=== PATIENT | male | born 1975 | race Caucasian/White ===

== ENCOUNTER 2016-10-27 09:31 | Emergency (ER) | payer OTHER ==
--- NOTE | ~2016-10-27 | CR181 ---
[facility]. [facility] A Service of [facility] & [facility] RADIOLOGY TEXT RESULTS PATIENT: GEOVANNI ABREU LOCATION: SED : 79 UNIT #: [id number] AGE: [address]: Riley Lester MD SEX: M ORDER DR: [id number] [place] [id number] E MR#: [id number] Acc #: [id number] NAME: GEOVANNI ABREU : 1975 SEX: M STUDY DATE/TIME: 10/27/2016 9:39 UNIT: SED ROOM: STUDY DESCRIPTION: CR Lumbar Spine 2 or 3 Views Attending Physician: Riley Lester M.D. Ordering Physician: Riley Lester M.D. Primary Care Physician: Caleb Armijo M.D. MEDICAL IMAGING REPORT This report is preliminary unless electronic signature is present. EXAM Lumbar spine radiographs. DATE OF EXAM 10/27/2016 INDICATIONS Fall. Low back pain. FINDINGS 3 views of the lumbar spine without comparison. There is no acute fracture or subluxation. Vertebral body height and alignment is within normal limits. There is some mild degenerative changes within the lumbar spine. Sacroiliac joints are normal. IMPRESSION No acute findings. Mild degenerative changes of the lumbar spine. Dictated by... Dale Read M.D. THIS IS AN ELECTRONICALLY VERIFIED REPORT Dale Read M.D. at 10/28/2016 10:42 AM GISELA/jean carlos TD: 10/28/2016 00:53 JOB #: [id number] MEDICAL IMAGING REPORT Page 1 of 1
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
[~2016-10-27 09:31] MED LIST: BENTYL20 MG PO; IBUPROFEN800 MG PO; LORTAB 7.5-3251 EACH; NEURONTIN800 MG PO; REGLAN; ZANTAC300 MG PO
== END 2016-10-27 10:25 | disposition home or self-care (01) ==
LOC: SED 09:31
DX: S39.012A Strain of muscle, fascia and tendon of lower back, initial encounter (principal); F17.200 Nicotine dependence, unspecified, uncomplicated; M54.9 Dorsalgia, unspecified; G89.29 Other chronic pain; W01.0XXA Fall on same level from slipping, tripping and stumbling without subsequent striking against object, initial encounter; Y92.9 Unspecified place or not applicable
CPT/HCPCS: 71101; 72072; 72100; 96372; 99284; J1885

== ENCOUNTER 2016-10-28 22:08 | Emergency (ER) | payer OTHER | END 2016-10-28 22:22 | disposition home or self-care (01) | LOC: SED 22:08 | DX: S33.5XXA Sprain of ligaments of lumbar spine, initial encounter (principal); S20.211A Contusion of right front wall of thorax, initial encounter; G89.29 Other chronic pain; F17.200 Nicotine dependence, unspecified, uncomplicated; V49.10XA Passenger injured in collision with unspecified motor vehicles in nontraffic accident, initial encounter; Z98.890 Other specified postprocedural states; Z88.0 Allergy status to penicillin; Z88.8 Allergy status to other drugs, medicaments and biological substances | CPT/HCPCS: 96372; 99283; J1200; J1885 ==

== ENCOUNTER 2017-03-13 23:25 | Emergency (ER) | payer OTHER ==
[~2017-03-13] VITALS: Ht 188 cm; Wt 79.4 kg
== END 2017-03-14 02:02 | disposition home or self-care (01) ==
LOC: SED 23:25
DX: T40.1X1A Poisoning by heroin, accidental (unintentional), initial encounter (principal); I10 Essential (primary) hypertension; J44.9 Chronic obstructive pulmonary disease, unspecified; F17.200 Nicotine dependence, unspecified, uncomplicated; K21.9 Gastro-esophageal reflux disease without esophagitis; Z88.0 Allergy status to penicillin; Z88.5 Allergy status to narcotic agent; Z79.899 Other long term (current) drug therapy
CPT/HCPCS: 99284

== ENCOUNTER 2017-03-14 10:44 | Emergency (ER) | payer OTHER | END 2017-03-14 14:13 | disposition home or self-care (01) | LOC: SED 10:44 | DX: T40.1X1A Poisoning by heroin, accidental (unintentional), initial encounter (principal); F17.210 Nicotine dependence, cigarettes, uncomplicated; Z88.0 Allergy status to penicillin; Z88.5 Allergy status to narcotic agent; Z79.899 Other long term (current) drug therapy | CPT/HCPCS: 99283 ==

== ENCOUNTER 2017-04-12 19:46 | Emergency (ER) | payer OTHER ==
[~2017-04-12] VITALS: Ht 188 cm; Wt 79.4 kg
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
[2017-04-12] MEDS ORDERED: XANAX2 MG PO (19:55)
== END 2017-04-12 22:32 | disposition home or self-care (01) ==
LOC: SED 19:46
DX: S02.2XXA Fracture of nasal bones, initial encounter for closed fracture (principal); S01.111A Laceration without foreign body of right eyelid and periocular area, initial encounter; F17.200 Nicotine dependence, unspecified, uncomplicated; V49.60XA Unspecified car occupant injured in collision with unspecified motor vehicles in traffic accident, initial encounter; Y92.410 Unspecified street and highway as the place of occurrence of the external cause
CPT/HCPCS: 12052; 70450; 71020; 72100; 72125; 72170; 99284